=== PATIENT | female | born 1965 | race African-American/Black ===

== ENCOUNTER 2023-12-11 18:02 | Emergency (ER) | payer OTHER ==
[2023-12-11 18:07] VITALS: BP 155/82; PULSE 88; RESP 19; TEMP 98.4; BMI 32.4
[2023-12-11 20:27] LABS: BASO % 0.4 % (0-2.0); HEMATOCRIT 40.6 % (32.4-45.2); HEMOGLOBIN 13.1 GM/dL (10.7-15.3); LYMPH % 9.5 % (8-40); MCH 27.1 pg (25.7-33.7); MCHC 32.2 g/dl (32.0-36.0); MEAN CELL VOLUME 84.1 fl (80-96); MONO % 3.9 % (3.8-10.2); NEUT % 85.2 % (42.8-82.8); PLATELET COUNT 180 10^3/uL (134-434); RBC 4.82 M/mm3 (3.60-5.2); RDW 13.8 % (11.6-15.6); WHITE BLOOD COUNT 8.5 K/mm3 (4.0-10.0)
[2023-12-11 20:45] LABS: POTASSIUM 5.3 mmol/L (3.5-5.1)
[2023-12-11 20:47] LABS: ALBUMIN 3.9 g/dl (3.4-5.0); CALCIUM 9.3 mg/dL (8.5-10.1)
[2023-12-11 20:48] LABS: BLOOD UREA NITROGEN 10.8 mg/dL (7-18); MAGNESIUM 2.2 mg/dL (1.8-2.4)
[2023-12-11 20:50] LABS: CREATININE 0.8 mg/dL (0.55-1.3)
[2023-12-11 20:52] LABS: BILIRUBIN,TOTAL 0.8 mg/dL (0.2-1); TOT PROT 8.4 g/dl (6.4-8.2)
== END 2023-12-11 21:21 | disposition home or self-care (01) ==
LOC: JER 18:02
DX: R10.11 Right upper quadrant pain (principal); R11.10 Vomiting, unspecified; K80.20 Calculus of gallbladder without cholecystitis without obstruction
CPT/HCPCS: 36415; 76705-TC; 80053; 83690; 83735; 85025; 99284-25